=== PATIENT | female | born 1940 | race Caucasian/White ===

== ENCOUNTER 2017-03-24 07:41 | Inpatient (IN) | payer OTHER ==
[2017-03-24 07:59] VITALS: BMI 22.6
[2017-03-24] MEDS ORDERED: ACETAMINOPHEN 1000 MG/100 ML VIAL (NON FORMULARY) IVPB ONE (08:30)
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
[2017-03-24] MEDS ORDERED: ACETAMINOPHEN INJECTION 100 ML IVPB ONE (08:53)
--- NOTE | 2017-03-24 09:07 | PDOC ---
Attending Attestation - Resident Resident Name: Nury Jurado - ED Attending Attestation I have performed the following: I have examined & evaluated the patient, The case was reviewed & discussed with the resident, I agree w/resident's findings & plan, Exceptions are as noted - Physicial Exam PE: 03/24/17 12:51 pt awake, alert, obesse, in moderate distress nc, atr perrla, eomi cta rrr sft, nt, nd + distal thorasic/proximal lumbar middline ttp unable to obtain straight leg raise b/l - Medical Decision Making 03/24/17 12:57 pt is a 76 y/o female with acute compression fx of t12, L3 with intractable pain , limited mobiltty. will treat with parenteral pain meds, will admit. <Phoenix Ramirez - Last Filed: 03/24/17 12:51> - HPI HPI: 03/24/17 10:20 The patient is a 76 year old female, with a significant past medical history of chronic back pain, hypertension, diabetes mellitus, and depression, who presents to the emergency department with, approx. 6 days of diffuse midline back pain s/p fall. The patient reports the back pain radiates down to her legs bilaterally (right more than left) and reports mild tingling. The patient reports she was recently seen at [facility] s/p fall and head CT and x- rays of the spine were negative. Allergies: NKA Documentation prepared by Benji Quiroz, acting as medical doctor for Phoenix Ramirez MD. <Benji Quiroz - Last Filed: 03/24/17 14:30>
[2017-03-24 10:04] LABS: URINE APPEARANCE CLEAR; URINE BILIRUBIN NEGATIVE (NEGATIVE); URINE BLOOD NEGATIVE (NEGATIVE); URINE COLOR LTYELLOW; URINE GLUCOSE (UA) 3+ (NEGATIVE); URINE KETONE TRACE (NEGATIVE); URINE LEUK ESTERASE NEGATIVE (NEGATIVE); URINE NITRITE NEGATIVE (NEGATIVE); URINE PROTEIN 1+ (NEGATIVE); URINE UROBILINOGEN NEGATIVE mg/dL (0.2-1.0)
[2017-03-24] MEDS ORDERED: SODIUM CHLORIDE 0.9% 1000 ML INFUS.BAG IV ONE (10:24)
[2017-03-24 10:32] LABS: BASO % 0.5 % (0-2.0); EOS % 1.1 % (0-4.5); HEMATOCRIT 44.2 % (32.4-45.2); HEMOGLOBIN 14.2 GM/dL (10.7-15.3); LYMPH % 14.1 % (8-40); MCH 28.1 pg (25.7-33.7); MCHC 32.2 g/dl (32.0-36.0); MEAN CELL VOLUME 87.5 fl (80-96); MONO % 8.2 % (3.8-10.2); NEUT % 76.1 % (42.8-82.8); PLATELET COUNT 170 K/MM3 (134-434); RBC 5.05 M/mm3 (3.60-5.2); WHITE BLOOD COUNT 12.4 K/mm3 (4.0-10.0)
[2017-03-24 10:56] LABS: ALBUMIN 3.4 g/dl (3.4-5.0); ANION GAP 7 (8-16); BLOOD UREA NITROGEN 35 mg/dL (7-18); CALCIUM 8.5 mg/dL (8.5-10.1); CHLORIDE 103 mmol/L (98-107); CO2 27 mmol/L (21-32); GLUCOSE,RANDOM 209 mg/dL (74-106); POTASSIUM 4.1 mmol/L (3.5-5.1); SODIUM 137 mmol/L (136-145)
[2017-03-24 10:59] LABS: ALK PHOS 100 U/L (45-117); BILIRUBIN,TOTAL 0.4 mg/dL (0.2-1.0); CREATININE 0.9 mg/dL (0.55-1.02); SGOT/AST 5 U/L (15-37); SGPT/ALT 16 U/L (12-78); TOT PROT 6.7 g/dl (6.4-8.2)
[2017-03-24 11:03] LABS: PROTHROMBIN TIME (PATIENT) 11.3 SEC (9.98-11.88)
[2017-03-24 11:35] LABS: EPI CELLS RARE /HPF (FEW); URINE MUCUS RARE
[2017-03-24 13:30] LABS: ERYTHROCYTE SEDIMENTATION RATE 18 mm/hr (0-30)
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
[2017-03-24] MEDS: INSULIN SLIDING SCALE (NOVOLOG) 1 VIAL SQ SCH ×2 (16:53→22:31)
[2017-03-24] MEDS ORDERED: INSULIN REGULAR HUMAN 100 UNITS/ML *VIAL ONE (17:03)
[2017-03-24] MEDS ORDERED: ENALAPRIL MALEATE 10 MG TABLET (FP) PO ONE ×2 (18:45→21:45)
[2017-03-24] MEDS: HYDROmorphone HCL CARPU-JECT 1 MG/1 ML DISP.SYRIN IVPUSH PRN (20:10)
[2017-03-24] MEDS: LIDOCAINE 5% TOPICAL PATCH TP SCH (20:20)
[2017-03-24] MEDS ORDERED: INSULIN (NOVOLOG) ASPART 100 UNITS/ML 10ML VIAL ONE (21:32)
[2017-03-24] MEDS: ROSUVASTATIN CA 10 MG TABLET (FP) PO SCH (22:29)
[2017-03-24] MEDS: DOCUSATE SODIUM 100 MG CAPSULE (FP) PO SCH (22:29)
[2017-03-24] MEDS: LIDOCAINE PATCH REMOVAL MC SCH (22:30)
[2017-03-24] MEDS: INSULIN DETEMIR 100 UNITS/ML MDV SQ SCH (22:30)
[2017-03-25] MEDS: HYDROmorphone HCL CARPU-JECT 1 MG/1 ML DISP.SYRIN IVPUSH PRN ×4 (02:13→17:47)
[2017-03-25] MEDS: INSULIN SLIDING SCALE (NOVOLOG) 1 VIAL SQ SCH ×4 (06:21→22:26)
[2017-03-25] MEDS: DOCUSATE SODIUM 100 MG CAPSULE (FP) PO SCH ×3 (06:22→22:28)
[2017-03-25 07:53] LABS: HEMATOCRIT 42.9 % (32.4-45.2); HEMOGLOBIN 13.8 GM/dL (10.7-15.3); MCH 28.3 pg (25.7-33.7); MCHC 32.2 g/dl (32.0-36.0); MEAN CELL VOLUME 87.9 fl (80-96); MEAN PLT VOLUME 9.2 fl (7.5-11.1); PLATELET COUNT 168 K/MM3 (134-434); RBC 4.89 M/mm3 (3.60-5.2); RDW 13.1 % (11.6-15.6)
[2017-03-25 08:31] LABS: ANION GAP 7 (8-16); BLOOD UREA NITROGEN 30 mg/dL (7-18); CALCIUM 9.3 mg/dL (8.5-10.1); CHLORIDE 103 mmol/L (98-107); CO2 29 mmol/L (21-32); GLUCOSE,RANDOM 243 mg/dL (74-106); POTASSIUM 4.6 mmol/L (3.5-5.1); SODIUM 139 mmol/L (136-145)
--- NOTE | 2017-03-25 08:51 | EKG ---
Test Reason : Blood Pressure : / mmHG Vent. Rate : 090 BPM Atrial Rate : 090 BPM P-R Int : 138 ms QRS Dur : 086 ms QT Int : 360 ms P-R-T Axes : 074 -71 074 degrees QTc Int : 440 ms SINUS RHYTHM WITH PREMATURE ATRIAL COMPLEXES LEFT ANTERIOR FASCICULAR BLOCK ABNORMAL ECG NO PREVIOUS ECGS AVAILABLE Confirmed by SIMBA AKBAR MD ([id number]) on 03/25/2017 8:51:38 AM Referred By: Confirmed By:SIMBA AKBAR MD
[2017-03-25] MEDS ORDERED: PATIENT'S OWN MEDICATION (NON-FORMULARY) (Sertraline Hcl [Zoloft] 100 MG) PO SCH (10:00)
[2017-03-25] MEDS ORDERED: PT OWN MED DRAWER 7, Y5N ONE (10:06)
[2017-03-25] MEDS: LIDOCAINE 5% TOPICAL PATCH TP SCH (10:12)
[2017-03-25] MEDS: POLYETHYLENE GLYCOL 3350 119 GM BTL PO SCH (10:12)
[2017-03-25] MEDS: SERTRALINE HCL 50 MG TABLET (FP) PO SCH (10:13)
[2017-03-25] MEDS: ENALAPRIL MALEATE 10 MG TABLET (FP) PO SCH (10:13)
[2017-03-25] MEDS ORDERED: HYDROmorphone HCL CARPU-JECT 1 MG/1 ML DISP.SYRIN IVPUSH PRN (11:55)
[2017-03-25] MEDS ORDERED: BISACODYL 10 MG SUPP.RECT RC PRN (11:56)
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
[2017-03-25] MEDS: LIDOCAINE PATCH REMOVAL MC SCH (22:27)
[2017-03-25] MEDS: INSULIN DETEMIR 100 UNITS/ML MDV SQ SCH (22:27)
[2017-03-25] MEDS: ROSUVASTATIN CA 10 MG TABLET (FP) PO SCH (22:28)
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
[2017-03-26] MEDS: INSULIN SLIDING SCALE (NOVOLOG) 1 VIAL SQ SCH ×4 (06:48→21:15)
[2017-03-26] MEDS: DOCUSATE SODIUM 100 MG CAPSULE (FP) PO SCH ×3 (06:49→21:08)
[2017-03-26] MEDS: HYDROmorphone HCL CARPU-JECT 1 MG/1 ML DISP.SYRIN IVPUSH PRN (08:43)
[2017-03-26] MEDS: LIDOCAINE 5% TOPICAL PATCH TP SCH (09:27)
[2017-03-26] MEDS: POLYETHYLENE GLYCOL 3350 119 GM BTL PO SCH (09:27)
[2017-03-26] MEDS: SERTRALINE HCL 50 MG TABLET (FP) PO SCH (09:28)
[2017-03-26] MEDS: ENALAPRIL MALEATE 10 MG TABLET (FP) PO SCH (09:28)
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
[2017-03-26] MEDS ORDERED: HYDROmorphone HCL CARPU-JECT 1 MG/1 ML DISP.SYRIN IVPUSH PRN (13:27)
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
[2017-03-26] MEDS ORDERED: diphenhydrAMINE HCL 25 MG CAPSULE (FP) PO ONE (17:45)
[2017-03-26] MEDS ORDERED: diphenhydrAMINE HCL 25 MG CAPSULE (FP) PO PRN (18:00)
[2017-03-26] MEDS ORDERED: HYDROCORTISONE 1% TOPICAL CREAM 30 GM TUBE TP PRN (18:33)
[2017-03-26] MEDS ORDERED: KETOROLAC TROMETHAMINE 15 MG/ML VIAL IVPUSH PRN (18:41)
[2017-03-26] MEDS: BACITRACIN/POLYMYXIN B SULFATE 15 GM TUBE TP SCH (21:09)
[2017-03-26] MEDS: ROSUVASTATIN CA 10 MG TABLET (FP) PO SCH (21:09)
[2017-03-26] MEDS: LIDOCAINE PATCH REMOVAL MC SCH (21:20)
[2017-03-26] MEDS ORDERED: SODIUM CHLORIDE 1,000 ML IV SCH (23:00)
[2017-03-27] MEDS: DOCUSATE SODIUM 100 MG CAPSULE (FP) PO SCH ×3 (06:21→21:11)
[2017-03-27] MEDS: INSULIN SLIDING SCALE (NOVOLOG) 1 VIAL SQ SCH ×3 (06:22→12:39)
[2017-03-27 07:48] LABS: BASO % 0.5 % (0-2.0); EOS % 1.8 % (0-4.5); LYMPH % 20.7 % (8-40); MCH 28.3 pg (25.7-33.7); MCHC 32.5 g/dl (32.0-36.0); MEAN CELL VOLUME 87.2 fl (80-96); MEAN PLT VOLUME 9.3 fl (7.5-11.1); MONO % 9.3 % (3.8-10.2); NEUT % 67.7 % (42.8-82.8); PLATELET COUNT 168 K/MM3 (134-434); RBC 4.59 M/mm3 (3.60-5.2); RDW 12.8 % (11.6-15.6); WHITE BLOOD COUNT 10.3 K/mm3 (4.0-10.0)
[2017-03-27 08:20] LABS: ALBUMIN 2.8 g/dl (3.4-5.0); ANION GAP 7 (8-16); BLOOD UREA NITROGEN 32 mg/dL (7-18); CALCIUM 8.2 mg/dL (8.5-10.1); CHLORIDE 103 mmol/L (98-107); CO2 25 mmol/L (21-32); CREATININE 0.9 mg/dL (0.55-1.02); GLUCOSE,RANDOM 273 mg/dL (74-106); POTASSIUM 4.7 mmol/L (3.5-5.1); SGOT/AST 5 U/L (15-37); SGPT/ALT 14 U/L (12-78); SODIUM 135 mmol/L (136-145)
[2017-03-27 08:22] LABS: ALK PHOS 104 U/L (45-117); BILIRUBIN,TOTAL 0.7 mg/dL (0.2-1.0); TOT PROT 5.7 g/dl (6.4-8.2)
[2017-03-27] MEDS ORDERED: GENTAMICIN SO4 80 MG/2 ML VIAL ONE (10:12)
[2017-03-27] MEDS ORDERED: VANCOMYCIN 1,000 MG VIAL (RESTRICTED TO ID ONLY) ONE ×2 (10:13→14:15)
[2017-03-27] MEDS ORDERED: THROMBIN (BOVINE) 20,000 UNIT VIAL TP ONE (10:13)
[2017-03-27] MEDS ORDERED: LIDOCAINE 1%/EPI 1:100000 (20 ML MULTI DOSE VIAL) ONE (10:14)
[2017-03-27] MEDS ORDERED: BUPIVACAINE HCL/PF 0.5% (5MG/ML) 10 ML VIAL ONE (10:15)
[2017-03-27] MEDS: ENALAPRIL MALEATE 10 MG TABLET (FP) PO SCH (10:21)
[2017-03-27] MEDS: LIDOCAINE 5% TOPICAL PATCH TP SCH ×2 (10:21→10:25)
[2017-03-27] MEDS: POLYETHYLENE GLYCOL 3350 119 GM BTL PO SCH (10:21)
[2017-03-27] MEDS: SERTRALINE HCL 50 MG TABLET (FP) PO SCH (10:24)
[2017-03-27] MEDS ORDERED: PT OWN MED DRAWER 7, Y5N ONE (10:30)
[2017-03-27] MEDS: BACITRACIN/POLYMYXIN B SULFATE 15 GM TUBE TP SCH ×2 (10:31→21:13)
[2017-03-27] MEDS ORDERED: fentaNYL CITRATE 250 MCG/5 ML VIAL ONE (11:37)
[2017-03-27] MEDS ORDERED: SUCCINYLCHOLINE CHLORIDE 200 MG/10 ML VIAL ONE (11:37)
[2017-03-27] MEDS ORDERED: PROPOFOL 20 ML ONE ×2 (11:37)
[2017-03-27] MEDS ORDERED: MIDAZOLAM HCL 2 MG/2 ML SINGLE DOSE VIAL ONE ×3 (11:37)
[2017-03-27] MEDS ORDERED: KETAMINE HCL 200 MG/20 ML VIAL ONE (11:37)
[2017-03-27] MEDS ORDERED: ROCURONIUM BROMIDE 50 MG/5 ML VIAL ONE ×2 (12:49→13:39)
[2017-03-27] MEDS ORDERED: ceFAZolin SODIUM 1 GM VIAL IVPB ONE (13:15)
[2017-03-27] MEDS ORDERED: VANCOMYCIN 1 GRAM (PRE-DOCKED) 1,000 MG/250 ML BAG IVPB ONE (13:30)
[2017-03-27] MEDS ORDERED: PHENYLEPHRINE HCL 10 MG/1 ML SINGLE DOSE VIAL ONE (13:51)
[2017-03-27] MEDS ORDERED: ceFAZolin SODIUM 1 GM VIAL ONE (14:15)
[2017-03-27] MEDS ORDERED: DEXAMETHASONE SOD PHOSPHATE 4 MG/1 ML VIAL ONE (14:15)
[2017-03-27] MEDS ORDERED: VASOPRESSIN 20 UNITS/ML VIAL IV ONE (14:54)
[2017-03-27] MEDS ORDERED: LIDOCAINE 1%/EPI 1:100000 (20 ML MULTI DOSE VIAL) IJ ONE (15:18)
[2017-03-27] MEDS ORDERED: THROMBIN (BOVINE) 5,000 UNIT VIAL TP ONE (15:19)
[2017-03-27] MEDS ORDERED: BUPIVACAINE HCL/PF 0.5% (5MG/ML) 10 ML VIAL IJ ONE (15:20)
[2017-03-27] MEDS ORDERED: GLYCOPYRROLATE 0.2 MG/1 ML VIAL ONE (15:21)
[2017-03-27] MEDS ORDERED: NEOSTIGMINE METHYLSULFATE 0.5 MG/ML - 10 ML MDV ONE (15:21)
[2017-03-27] MEDS ORDERED: BACITRACIN 15 GM TUBE TOPICAL OINTMENT ONE (15:36)
[2017-03-27] MEDS ORDERED: ONDANSETRON 4 MG/2 ML VIAL IVPUSH PRN ×2 (15:44→16:35)
[2017-03-27] MEDS ORDERED: HYDROmorphone *PCA* 10MG/50ML DISP.SYRIN PCA SCH (15:45)
[2017-03-27] MEDS ORDERED: LACTATED RINGERS SOLUTION 1,000 ML IV SCH (15:45)
[2017-03-27] MEDS ORDERED: HYDROmorphone *PCA* 6MG/30ML DISP.SYRIN PCA ONE (15:58)
[2017-03-27] MEDS ORDERED: ACETAMINOPHEN 325 MG TABLET (FP) PO PRN (16:02)
--- NOTE | 2017-03-27 16:06 | OP ---
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
--- NOTE | 2017-03-27 16:11 | SURG ---
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 For further detail, please refer to operative report. Visit type - Case Type Case Type: ED Admission - Emergency Emergency Visit: Yes ED Registration Date: 03/26/17 Care time: The patient presented to the Emergency Department on the above date and was hospitalized for further evaluation of their emergent condition. - New patient This patient is new to me today: Yes Date on this admission: 03/27/17
[2017-03-27] MEDS: SODIUM CHLORIDE 1,000 ML IV SCH (16:15)
[2017-03-27] MEDS ORDERED: HYDROCORTISONE 1% TOPICAL CREAM 30 GM TUBE TP PRN (16:35)
[2017-03-27] MEDS ORDERED: BISACODYL 10 MG SUPP.RECT RC PRN (16:35)
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
[2017-03-27] MEDS: ROSUVASTATIN CA 10 MG TABLET (FP) PO SCH (21:12)
[2017-03-27] MEDS: HEPARIN NA (PORCINE) 5,000 UNITS/ML 1ML VIAL SQ SCH (21:12)
[2017-03-27] MEDS: CEFAZOLIN 1 GM PUSH 1 GM/10 ML DISP.SYRIN IVPUSH SCH (21:13)
[2017-03-27] MEDS ORDERED: INSULIN SLIDING SCALE (NOVOLOG) 1 VIAL SQ SCH (22:00)
[2017-03-27] MEDS ORDERED: LIDOCAINE PATCH REMOVAL MC SCH ×2 (22:00)
[2017-03-28] MEDS: CEFAZOLIN 1 GM PUSH 1 GM/10 ML DISP.SYRIN IVPUSH SCH ×3 (06:04→22:04)
[2017-03-28] MEDS: DOCUSATE SODIUM 100 MG CAPSULE (FP) PO SCH ×4 (06:05→22:04)
[2017-03-28] MEDS: HEPARIN NA (PORCINE) 5,000 UNITS/ML 1ML VIAL SQ SCH ×3 (06:06→22:05)
[2017-03-28] MEDS: INSULIN SLIDING SCALE (NOVOLOG) 1 VIAL SQ SCH ×5 (06:07→22:10)
[2017-03-28] MEDS: SODIUM CHLORIDE 1,000 ML IV SCH ×2 (06:10→18:09)
[2017-03-28] MEDS: HYDROmorphone *PCA* 10MG/50ML DISP.SYRIN PCA SCH ×2 (07:32→18:04)
[2017-03-28 07:50] LABS: BASO % 0.5 % (0-2.0); EOS % 0.1 % (0-4.5); HEMATOCRIT 32.5 % (32.4-45.2); HEMOGLOBIN 10.5 GM/dL (10.7-15.3); LYMPH % 10.9 % (8-40); MCH 28.2 pg (25.7-33.7); MCHC 32.4 g/dl (32.0-36.0); MEAN CELL VOLUME 87.2 fl (80-96); MEAN PLT VOLUME 9.5 fl (7.5-11.1); MONO % 8.1 % (3.8-10.2); NEUT % 80.4 % (42.8-82.8); PLATELET COUNT 150 K/MM3 (134-434); RBC 3.72 M/mm3 (3.60-5.2); RDW 12.8 % (11.6-15.6)
[2017-03-28 08:15] LABS: ALBUMIN 2.4 g/dl (3.4-5.0); ANION GAP 8 (8-16); BLOOD UREA NITROGEN 38 mg/dL (7-18); CALCIUM 7.4 mg/dL (8.5-10.1); CHLORIDE 105 mmol/L (98-107); CO2 23 mmol/L (21-32); CREATININE 1.1 mg/dL (0.55-1.02); GLUCOSE,RANDOM 251 mg/dL (74-106); POTASSIUM 4.5 mmol/L (3.5-5.1); SGOT/AST 8 U/L (15-37); SGPT/ALT 12 U/L (12-78); SODIUM 136 mmol/L (136-145)
[2017-03-28 08:16] LABS: ALK PHOS 95 U/L (45-117); BILIRUBIN,TOTAL 0.4 mg/dL (0.2-1.0); TOT PROT 4.9 g/dl (6.4-8.2)
--- NOTE | 2017-03-28 08:43 | PN ---
Progress Note, Physician Chief Complaint: s/p L3-4 decompression and fusion under general anesthesia History of Present Illness: post op day one - Current Medication List Current Medications: Active Medications Acetaminophen (Tylenol -) 650 mg PO Q4H PRN PRN Reason: FEVER Bacitracin/Polymyxin B Sulfate (Polysporin Ointment -) 1 applic TP BID [facility] Last Admin: 03/27/17 21:13 Dose: 1 applic Bisacodyl (Dulcolax Suppository -) 10 mg RC DAILY PRN PRN Reason: CONSTIPATION Diphenhydramine HCl (Benadryl -) 25 mg PO Q6H PRN PRN Reason: FOR ITCHING Docusate Sodium (Colace -) 100 mg PO TID [facility] Last Admin: 03/28/17 06:05 Dose: 100 mg Enalapril Maleate (Vasotec -) 10 mg PO DAILY [facility] Heparin Sodium (Porcine) (Heparin -) 5,000 unit SQ TID [facility] Last Admin: 03/28/17 06:06 Dose: 5,000 unit Hydrocortisone (Hytone 1% Cream -) 1 applic TP BID PRN PRN Reason: itchiness Hydromorphone HCl (Dilaudid Manager Express -) 10 mg TURNTABLE MAN TURNTABLE MAN [facility] PRN Reason: Protocol Stop: 03/30/17 17:14 Last Admin: 03/28/17 07:32 Dose: Not Given Cefazolin Sodium (Ancef -) 1 gm in 10 mls @ 120 mls/hr IVPUSH Q8H [facility] Last Admin: 03/28/17 06:04 Dose: 120 mls/hr Sodium Chloride (Normal Saline -) 1,000 mls @ 75 mls/hr IV ASDIR [facility] Last Admin: 03/28/17 06:10 Dose: 75 mls/hr Insulin Aspart (Novolog Vial Sliding Scale -) 1 vial SQ ACHS [facility] PRN Reason: Protocol Last Admin: 03/28/17 06:07 Dose: 8 unit Insulin Detemir (Levemir Vial) 10 units SQ HS [facility] Lidocaine (Lidoderm Patch -) 1 patch TP DAILY [facility] Miscellaneous (Lidoderm Patch Removal) 1 each MC DAILY@2200 [facility] Last Admin: 03/27/17 21:14 Dose: 1 each Ondansetron HCl (Zofran Injection) 4 mg IVPUSH Q6H PRN PRN Reason: NAUSEA AND/OR VOMITING Polyethylene Glycol (Miralax (For Daily Use) -) 17 gm PO DAILY [facility] Rosuvastatin Calcium (Crestor -) 10 mg PO HS [facility] Last Admin: 03/27/17 21:12 Dose: 10 mg Sertraline HCl (Zoloft -) 100 mg PO DAILY [facility] - Objective Vital Signs: Vital Signs Temperature 97.5 F L 03/28/17 07:26 Pulse Rate 75 03/28/17 07:26 Respiratory Rate 20 03/28/17 07:26 Blood Pressure 104/50 03/28/17 07:26 O2 Sat by Pulse Oximetry (%) 98 03/27/17 17:30 Cardiovascular: Yes: WNL Respiratory: Yes: WNL Gastrointestinal: Yes: WNL Labs: CBC, BMP 03/28/17 06:00 03/28/17 06:00 INR, PTT INR 1.00 (0.82-1.09) 03/24/17 10:00 Assessment/Plan patient doing well, tolerating po liquids, no nausea or vomiting overnight. Patient says sole scraper is helping with the pain but doesnt last long. Will convert to po pain medication. dept of anesthesiology will sign off at this time
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
[2017-03-28] MEDS ORDERED: SODIUM CHLORIDE 1,000 ML IV SCH (09:45)
[2017-03-28] MEDS ORDERED: LIDOCAINE 5% TOPICAL PATCH TP SCH (10:00)
[2017-03-28] MEDS ORDERED: PT OWN MED DRAWER 7, Y5N ONE (10:33)
[2017-03-28] MEDS: ENALAPRIL MALEATE 10 MG TABLET (FP) PO SCH (10:44)
[2017-03-28] MEDS: SERTRALINE HCL 50 MG TABLET (FP) PO SCH (10:44)
[2017-03-28] MEDS: BACITRACIN/POLYMYXIN B SULFATE 15 GM TUBE TP SCH ×2 (10:44→22:30)
[2017-03-28] MEDS: POLYETHYLENE GLYCOL 3350 119 GM BTL PO SCH (10:49)
[2017-03-28] MEDS: ONDANSETRON 4 MG/2 ML VIAL IVPUSH PRN (20:22)
[2017-03-28] MEDS ORDERED: INSULIN (NOVOLOG) ASPART 100 UNITS/ML 10ML VIAL ONE (21:27)
[2017-03-28] MEDS: ROSUVASTATIN CA 10 MG TABLET (FP) PO SCH (22:04)
[2017-03-28] MEDS: INSULIN DETEMIR 100 UNITS/ML MDV SQ SCH (22:05)
[2017-03-28] MEDS ORDERED: INSULIN DETEMIR 100 UNITS/ML MDV SQ SCH (22:28)
[2017-03-29] MEDS: SODIUM CHLORIDE 1,000 ML IV SCH ×2 (01:03→18:30)
[2017-03-29] MEDS: CEFAZOLIN 1 GM PUSH 1 GM/10 ML DISP.SYRIN IVPUSH SCH ×3 (06:16→22:25)
[2017-03-29] MEDS: DOCUSATE SODIUM 100 MG CAPSULE (FP) PO SCH ×3 (06:16→22:23)
[2017-03-29] MEDS: HEPARIN NA (PORCINE) 5,000 UNITS/ML 1ML VIAL SQ SCH ×3 (06:17→22:25)
[2017-03-29] MEDS: INSULIN SLIDING SCALE (NOVOLOG) 1 VIAL SQ SCH ×4 (06:17→22:20)
[2017-03-29] MEDS: ONDANSETRON 4 MG/2 ML VIAL IVPUSH PRN (06:18)
[2017-03-29] MEDS ORDERED: ACETAMINOPHEN 1000 MG/100 ML VIAL (NON FORMULARY) IVPB ONE (09:45)
[2017-03-29] MEDS ORDERED: METOCLOPRAMIDE HCL INJECTION 10 MG/2 ML VIAL IVPUSH ONE (09:45)
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
[2017-03-29] MEDS: POLYETHYLENE GLYCOL 3350 119 GM BTL PO SCH (13:06)
[2017-03-29] MEDS: ENALAPRIL MALEATE 10 MG TABLET (FP) PO SCH (13:06)
[2017-03-29] MEDS: SERTRALINE HCL 50 MG TABLET (FP) PO SCH (13:06)
[2017-03-29] MEDS: BACITRACIN/POLYMYXIN B SULFATE 15 GM TUBE TP SCH ×2 (15:09→22:30)
[2017-03-29] MEDS: HYDROmorphone *PCA* 10MG/50ML DISP.SYRIN PCA SCH (18:30)
[2017-03-29] MEDS: ROSUVASTATIN CA 10 MG TABLET (FP) PO SCH (22:22)
[2017-03-29] MEDS: INSULIN DETEMIR 100 UNITS/ML MDV SQ SCH (22:22)
[2017-03-30] MEDS: INSULIN SLIDING SCALE (NOVOLOG) 1 VIAL SQ SCH ×4 (06:35→23:00)
[2017-03-30] MEDS: HEPARIN NA (PORCINE) 5,000 UNITS/ML 1ML VIAL SQ SCH ×3 (06:36→22:58)
[2017-03-30] MEDS: DOCUSATE SODIUM 100 MG CAPSULE (FP) PO SCH ×3 (06:36→23:01)
[2017-03-30] MEDS: CEFAZOLIN 1 GM PUSH 1 GM/10 ML DISP.SYRIN IVPUSH SCH (06:37)
[2017-03-30 07:37] LABS: BASO % 0.4 % (0-2.0); EOS % 0.6 % (0-4.5); HEMATOCRIT 28.8 % (32.4-45.2); HEMOGLOBIN 9.4 GM/dL (10.7-15.3); LYMPH % 13.8 % (8-40); MCH 28.6 pg (25.7-33.7); MCHC 32.8 g/dl (32.0-36.0); MEAN CELL VOLUME 87.1 fl (80-96); MEAN PLT VOLUME 9.6 fl (7.5-11.1); MONO % 9.8 % (3.8-10.2); NEUT % 75.4 % (42.8-82.8); PLATELET COUNT 158 K/MM3 (134-434); RBC 3.31 M/mm3 (3.60-5.2); RDW 12.7 % (11.6-15.6); WHITE BLOOD COUNT 11.4 K/mm3 (4.0-10.0)
[2017-03-30 08:06] LABS: BLOOD UREA NITROGEN 16 mg/dL (7-18); CHLORIDE 106 mmol/L (98-107); POTASSIUM 4.1 mmol/L (3.5-5.1); SODIUM 139 mmol/L (136-145)
[2017-03-30 08:12] LABS: ANION GAP 8 (8-16); CALCIUM 7.6 mg/dL (8.5-10.1); CO2 25 mmol/L (21-32); CREATININE 0.6 mg/dL (0.55-1.02); GLUCOSE,RANDOM 121 mg/dL (74-106)
[2017-03-30] MEDS: ONDANSETRON 4 MG/2 ML VIAL IVPUSH PRN (10:04)
[2017-03-30] MEDS: BACITRACIN/POLYMYXIN B SULFATE 15 GM TUBE TP SCH ×2 (10:04→23:00)
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
[2017-03-30] MEDS: SERTRALINE HCL 50 MG TABLET (FP) PO SCH (14:11)
[2017-03-30] MEDS: ENALAPRIL MALEATE 10 MG TABLET (FP) PO SCH (14:11)
[2017-03-30] MEDS: POLYETHYLENE GLYCOL 3350 119 GM BTL PO SCH (14:11)
[2017-03-30] MEDS: SODIUM CHLORIDE 1,000 ML IV SCH (14:12)
[2017-03-30] MEDS: INSULIN DETEMIR 100 UNITS/ML MDV SQ SCH ×2 (14:13→22:59)
--- NOTE | 2017-03-30 15:36 | PROC ---
Procedure Note Procedure: Asked by Dr. Etienne to remove the patients RIGO drain. RIGO-35ml serosangreous Midline dressing c/d/i. Rigo remove intact and dry gauze/tegaderm applied.
[2017-03-30] MEDS: diphenhydrAMINE HCL 25 MG CAPSULE (FP) PO PRN (19:17)
[2017-03-30] MEDS: ROSUVASTATIN CA 10 MG TABLET (FP) PO SCH (23:01)
[2017-03-31] MEDS: SODIUM CHLORIDE 1,000 ML IV SCH ×3 (00:13→17:45)
[2017-03-31] MEDS: INSULIN SLIDING SCALE (NOVOLOG) 1 VIAL SQ SCH ×4 (06:08→21:35)
[2017-03-31] MEDS: DOCUSATE SODIUM 100 MG CAPSULE (FP) PO SCH ×2 (06:08→14:35)
[2017-03-31] MEDS: ONDANSETRON 4 MG/2 ML VIAL IVPUSH PRN (06:11)
[2017-03-31] MEDS: HEPARIN NA (PORCINE) 5,000 UNITS/ML 1ML VIAL SQ SCH ×3 (06:11→21:26)
[2017-03-31] MEDS ORDERED: INSULIN (NOVOLOG) ASPART 100 UNITS/ML 10ML VIAL ONE (06:26)
[2017-03-31] MEDS ORDERED: INSULIN DETEMIR 100 UNITS/ML MDV SQ ONE (06:26)
[2017-03-31] MEDS: POLYETHYLENE GLYCOL 3350 119 GM BTL PO SCH (10:03)
[2017-03-31] MEDS: BACITRACIN/POLYMYXIN B SULFATE 15 GM TUBE TP SCH ×2 (10:03→21:27)
[2017-03-31] MEDS: ENALAPRIL MALEATE 10 MG TABLET (FP) PO SCH (10:04)
[2017-03-31] MEDS: SERTRALINE HCL 50 MG TABLET (FP) PO SCH (10:04)
--- NOTE | 2017-03-31 10:07 | PN ---
Progress Note (short form) - Note Progress Note: Patient is a 76 year old female who is post-op day #3 s/p L3-L4 Laminectomies with decompression and partial discectomy. She is out of bed and ambulating with physical therapy. Doing well without any noted distress. No fever; chills ; colds or cough. No drains. Surgical dressing dry and intact. Will continue to follow from neurosurgeon.
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
--- NOTE | 2017-03-31 15:48 | PROC ---
Procedure Note Procedure: Left dressing intact since it was clean/dry and well secured. Changed outer dressing and applied betadine, 4x4 gauze and tegaderm to site were RIGO was removed. The dressing was left intact since it was clean and the pt has been having diarrhea. Aquacel dressing left at the bedside if her dressing becomes soiled. May be changed by the nursing staff as needed.
[2017-03-31] MEDS ORDERED: oxyCODONE HCL 5 MG TABLET PO PRN ×2 (15:51→15:53)
[2017-03-31] MEDS ORDERED: DOCUSATE SODIUM 100 MG CAPSULE (FP) PO PRN (15:52)
[2017-03-31] MEDS: diphenhydrAMINE HCL 25 MG CAPSULE (FP) PO PRN (20:54)
[2017-03-31] MEDS: ROSUVASTATIN CA 10 MG TABLET (FP) PO SCH (21:26)
[2017-03-31] MEDS: INSULIN DETEMIR 100 UNITS/ML MDV SQ SCH (21:29)
[2017-04-01] MEDS: HEPARIN NA (PORCINE) 5,000 UNITS/ML 1ML VIAL SQ SCH ×3 (06:19→21:54)
[2017-04-01] MEDS: INSULIN SLIDING SCALE (NOVOLOG) 1 VIAL SQ SCH ×4 (06:22→21:49)
[2017-04-01] MEDS: ONDANSETRON 4 MG/2 ML VIAL IVPUSH PRN (12:08)
[2017-04-01] MEDS: SODIUM CHLORIDE 1,000 ML IV SCH (12:08)
[2017-04-01] MEDS: POLYETHYLENE GLYCOL 3350 119 GM BTL PO SCH (12:08)
[2017-04-01] MEDS: BACITRACIN/POLYMYXIN B SULFATE 15 GM TUBE TP SCH ×2 (12:08→22:00)
[2017-04-01] MEDS: SERTRALINE HCL 50 MG TABLET (FP) PO SCH (15:26)
[2017-04-01] MEDS: ENALAPRIL MALEATE 10 MG TABLET (FP) PO SCH (15:26)
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
[2017-04-01] MEDS: diphenhydrAMINE HCL 25 MG CAPSULE (FP) PO PRN (19:07)
[2017-04-01] MEDS: INSULIN DETEMIR 100 UNITS/ML MDV SQ SCH (21:48)
[2017-04-01] MEDS: ROSUVASTATIN CA 10 MG TABLET (FP) PO SCH (21:53)
[2017-04-01] MEDS ORDERED: PT OWN MED DRAWER 7, Y5N ONE (22:27)
[2017-04-02] MEDS: HEPARIN NA (PORCINE) 5,000 UNITS/ML 1ML VIAL SQ SCH ×3 (05:43→21:51)
[2017-04-02] MEDS: INSULIN SLIDING SCALE (NOVOLOG) 1 VIAL SQ SCH ×4 (06:18→22:18)
[2017-04-02 08:07] LABS: BASO % 1.1 % (0-2.0); EOS % 1.8 % (0-4.5); HEMATOCRIT 27.9 % (32.4-45.2); HEMOGLOBIN 9.3 GM/dL (10.7-15.3); LYMPH % 17.5 % (8-40); MCH 28.9 pg (25.7-33.7); MCHC 33.4 g/dl (32.0-36.0); MEAN CELL VOLUME 86.4 fl (80-96); MEAN PLT VOLUME 9.2 fl (7.5-11.1); MONO % 9.3 % (3.8-10.2); NEUT % 70.3 % (42.8-82.8); PLATELET COUNT 206 K/MM3 (134-434); RBC 3.23 M/mm3 (3.60-5.2); RDW 12.9 % (11.6-15.6); WHITE BLOOD COUNT 9.6 K/mm3 (4.0-10.0)
[2017-04-02 08:18] LABS: ALBUMIN 2.2 g/dl (3.4-5.0); ALK PHOS 120 U/L (45-117); ANION GAP 7 (8-16); BILIRUBIN,TOTAL 0.3 mg/dL (0.2-1.0); BLOOD UREA NITROGEN 14 mg/dL (7-18); CALCIUM 7.4 mg/dL (8.5-10.1); CHLORIDE 107 mmol/L (98-107); CO2 28 mmol/L (21-32); CREATININE 0.7 mg/dL (0.55-1.02); GLUCOSE,RANDOM 112 mg/dL (74-106); MAGNESIUM 1.5 mg/dL (1.8-2.4); POTASSIUM 3.7 mmol/L (3.5-5.1); SGOT/AST 14 U/L (15-37); SGPT/ALT 11 U/L (12-78); SODIUM 142 mmol/L (136-145); TOT PROT 4.9 g/dl (6.4-8.2)
[2017-04-02] MEDS ORDERED: PT OWN MED DRAWER 7, Y5N ONE (10:01)
[2017-04-02] MEDS: BACITRACIN/POLYMYXIN B SULFATE 15 GM TUBE TP SCH ×2 (10:12→21:53)
[2017-04-02] MEDS: SERTRALINE HCL 50 MG TABLET (FP) PO SCH (10:12)
[2017-04-02] MEDS: ENALAPRIL MALEATE 10 MG TABLET (FP) PO SCH (10:12)
[2017-04-02] MEDS: POLYETHYLENE GLYCOL 3350 119 GM BTL PO SCH (10:12)
[2017-04-02] MEDS: ONDANSETRON 4 MG/2 ML VIAL IVPUSH PRN (10:12)
[2017-04-02] MEDS: SODIUM CHLORIDE 1,000 ML IV SCH (11:30)
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
[2017-04-02] MEDS: diphenhydrAMINE HCL 25 MG CAPSULE (FP) PO PRN (19:38)
[2017-04-02] MEDS: ROSUVASTATIN CA 10 MG TABLET (FP) PO SCH (21:51)
[2017-04-02] MEDS ORDERED: INSULIN (NOVOLOG) ASPART 100 UNITS/ML 10ML VIAL ONE (22:16)
[2017-04-02] MEDS: INSULIN DETEMIR 100 UNITS/ML MDV SQ SCH (22:18)
[2017-04-02] MEDS ORDERED: MAGNESIUM SULF 50% (8.12 MEQ/2 ML-1 GM VIAL) IVPB ONE (23:00)
[2017-04-02] MEDS ORDERED: MAGNESIUM SULFATE IN WATER 2 GM/50 ML IVPB IVPB ONE (23:30)
[2017-04-03] MEDS: INSULIN SLIDING SCALE (NOVOLOG) 1 VIAL SQ SCH ×2 (06:12→12:18)
[2017-04-03] MEDS: HEPARIN NA (PORCINE) 5,000 UNITS/ML 1ML VIAL SQ SCH (06:12)
[2017-04-03] MEDS: SODIUM CHLORIDE 1,000 ML IV SCH ×2 (06:17→12:21)
[2017-04-03] MEDS ORDERED: PT OWN MED DRAWER 7, Y5N ONE ×3 (06:23→10:01)
[2017-04-03] MEDS ORDERED: INSULIN (NOVOLOG) ASPART 100 UNITS/ML 10ML VIAL ONE (07:08)
[2017-04-03] MEDS: BACITRACIN/POLYMYXIN B SULFATE 15 GM TUBE TP SCH (10:06)
[2017-04-03] MEDS: POLYETHYLENE GLYCOL 3350 119 GM BTL PO SCH (10:06)
[2017-04-03] MEDS: ENALAPRIL MALEATE 10 MG TABLET (FP) PO SCH (10:08)
[2017-04-03] MEDS: SERTRALINE HCL 50 MG TABLET (FP) PO SCH (10:08)
--- NOTE | 2017-04-03 11:34 | PN ---
Progress Note (short form) - Note Progress Note: PT seen and examined this am. Having bowel movements that are now formed. No pain. Vital Signs Period Temp Pulse Resp BP Sys/Abdullahi Pulse Ox Last 24 Hr 97.8 F-98.6 F 70-88 16-20 114-145/47-98 95 GEN: A&0x3, NAD ABD: soft, non-distended, non-tender Back: dressing changed. Incision c/d/i with chris. No erythema, drainage or fullness. LE: 5/5 dorsi/platnar flexion b/l. No calf tenderness or swelling noted b/l. able to straight leg raise 5/5 b/l. CBC, BMP 18/18 06:45 04/02/18 06:45 A/P: 76 yo female s/p L3-L4 laminectomy, decompression with partial discectomy and fusion, POD#7 D/w Dr. Etienne and pt is cleared for discharge, she will be going to [facility] discharge instructions written regarding her f/u care, incision care and activity levels
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
[2017-04-03 16:05] VITALS: BP 150/75; PULSE 86; TEMP 98.6
== END 2017-04-03 14:21 | DRG 304 ==
LOC: JER 07:41 → JERBED 13:57 → J8W 17:43 → OBSVTOIN 03-26 14:19
PROVIDERS: ADMIT Internal Medicine; ATTEND Nurse Practitioner Acute Care
PROC: 01N80ZZ Release Thoracic Nerve, Open Approach (ICD-10-PCS; principal; 2017-03-26)
PROC: 0RB90ZZ Excision of Thoracic Vertebral Disc, Open Approach (ICD-10-PCS; 2017-03-26)
PROC: 0RG6071 Fusion of Thoracic Vertebral Joint with Autologous Tissue Substitute, Posterior Approach, Posterior Column, Open Approach (ICD-10-PCS; 2017-03-26)
PROC: 0JX70ZB Transfer Back Subcutaneous Tissue and Fascia with Skin and Subcutaneous Tissue, Open Approach (ICD-10-PCS; 2017-03-26)
DX: S22.039A Unspecified fracture of third thoracic vertebra, initial encounter for closed fracture (principal); S32.049A Unspecified fracture of fourth lumbar vertebra, initial encounter for closed fracture; W19.XXXA Unspecified fall, initial encounter; I10 Essential (primary) hypertension; E11.9 Type 2 diabetes mellitus without complications; R11.2 Nausea with vomiting, unspecified; S22.049A Unspecified fracture of fourth thoracic vertebra, initial encounter for closed fracture; M47.894 Other spondylosis, thoracic region
CPT/HCPCS: 36415; 71045-TC-FY; 72128-TC; 72131-TC; 72146-TC; 72148-TC; 76000-TC-FY; 80048; 80053; 81003; 81015; 82962; 83735; 85025; 85027; 85610; 85651; 86140; 86850; 86900; 86901; 87086; 93005; 93010; 94760; 97116-GP; 97161-GP; 99283-25; G0378; J1170; J1644

== ENCOUNTER 2017-05-16 10:56 | Emergency (ER) | payer OTHER ==
[2017-05-16 11:26] VITALS: BP 151/86; PULSE 110; TEMP 97.7; BMI 22.7
--- NOTE | 2017-05-16 11:28 | PDOC ---
History of Present Illness - General Chief Complaint: Weakness Stated Complaint: WEAKNESS Time Seen by Provider: 05/16/17 11:07 Past History - Past Medical History Allergies/Adverse Reactions: Allergies Allergy/AdvReac Type Severity Reaction Status Date / Time latex Allergy Verified 05/16/17 11:21 Latex, Natural Rubber Allergy Verified 05/16/17 11:21 Home Medications: Ambulatory Orders Enalapril Maleate [Vasotec -] 10 mg PO DAILY 03/24/17 Rosuvastatin Calcium [Crestor] 10 mg PO DAILY 03/24/17 Sertraline HCl [Zoloft] 100 mg PO DAILY 03/24/17 Insulin (Levemir) [Levemir Vial] 15 units SQ HS ml 04/03/17 COPD: No Diabetes: Yes HTN: Yes Psychiatric Problems: Yes (depression) - Suicide/Smoking/Psychosocial Hx Smoking History: Never smoked Have you smoked in the past 12 months: No Information on smoking cessation initiated: No Hx Alcohol Use: No Drug/Substance Use Hx: No Substance Use Type: None Review of Systems - Review of Systems Able to Perform ROS?: Yes Comments:: 05/16/17 12:01 CONSTITUTIONAL: Absent: fever, chills, diaphoresis, generalized weakness, malaise, loss of appetite HEENT: Absent: rhinorrhea, nasal congestion, throat pain, throat swelling, difficulty swallowing, mouth swelling, ear pain, eye pain, visual Changes CARDIOVASCULAR: Absent: chest pain, loss of consciousness, palpitations, irregular heart rate, peripheral edema RESPIRATORY: Absent: cough, shortness of breath, dyspnea with exertion, orthopnea, wheezing, stridor, hemoptysis GASTROINTESTINAL: Present: nausea Absent: abdominal pain, abdominal distension, vomiting, diarrhea , constipation, melena, hematochezia GENITOURINARY: Absent: dysuria, frequency, urgency, hesitancy, hematuria, flank pain, genital pain MUSCULOSKELETAL: Absent: myalgia, arthralgia, joint swelling SKIN: Absent: rash, itching, pallor HEMATOLOGIC/IMMUNOLOGIC: Absent: easy bleeding, easy bruising, lymphadenopathy, frequent infections ENDOCRINE: Absent: unexplained weight gain, unexplained weight loss, heat intolerance, cold intolerance NEUROLOGIC: Present: dizziness/weakness Absent: headache, focal weakness or paresthesias, dizziness, unsteady gait, seizure, mental status changes, bladder or bowel incontinence PSYCHIATRIC: Absent: anxiety, depression, suicidal or homicidal ideation, hallucinations. Is the patient limited Omani proficient: No *Physical Exam - Vital Signs Last Vital Signs Temp Pulse Resp BP Pulse Ox 97.7 F 110 H 16 151/86 96 05/16/17 11:00 05/16/17 11:00 05/16/17 11:00 05/16/17 11:00 05/16/17 11:00 - Physical Exam Comments: 05/16/17 12:02 GENERAL: Well developed, well nourished. Awake and alert. No acute distress. Laying comfortably in exam bed. HEENT: Normocephalic, atraumatic. PERRLA, EOMI. No conjunctival pallor. Sclera are non- icteric. Moist mucous membranes. Oropharynx is clear. NECK: Supple. Full ROM. No JVD. Carotid pulses 2+ and symmetric, without bruits. No thyromegaly. No lymphadenopathy. CARDIOVASCULAR: Regular rate and rhythm. No murmurs, rubs, or gallops. Distal pulses are 2+ and symmetric. PULMONARY: No evidence of respiratory distress. Lungs clear to auscultation bilaterally. No wheezing, rales or rhonchi. ABDOMINAL: Soft. Non-tender. Non-distended. No rebound or guarding. No organomegaly. Normoactive bowel sounds. MUSCULOSKELETAL Normal range of motion at all joints. No bony deformities or tenderness. No CVA tenderness. EXTREMITIES: No cyanosis. No clubbing. No edema. No calf tenderness. SKIN: Warm and dry. Normal capillary refill. No rashes. No jaundice. NEUROLOGICAL: Pt. with tremor of the hads b/l, no flapping noted. Alert, awake, appropriate. Cranial nerves 2-12 intact. No deficits to light touch and temperature in face, upper extremities and lower extremities. No motor deficits in the in face, upper extremities and lower extremities. Normoreflexic in the upper and lower extremities. Normal speech. Toes are down-going bilaterally. Gait is normal without ataxia. PSYCHIATRIC: Cooperative. Good eye contact. Appropriate mood and affect. ED Treatment Course - LABORATORY CBC & Chemistry Diagram: 05/16/17 11:34 05/16/17 11:34 *DC/Admit/Observation/Transfer Diagnosis at time of Disposition: Nausea - Discharge Dispostion Disposition: HOME Condition at time of disposition: Stable Admit: No - Referrals Referrals: Shavonne Fonseca MD [Primary Care Provider] - - Patient Instructions Printed Discharge Instructions: DI for Nausea -- Adult Additional Instructions: Your workup today was normal. Your lab work was also normal. Please take the meclizine every 8 hours as needed for nausea. Please follow-up with your primary care doctor this week. Drink plenty of fluids and eat small meals to help with digestion. Return to the emergency department if you have worsening nausea, if you're unable to keep any food or liquids down, fevers, chills or have any changes in her symptoms. - Post Discharge Activity
[2017-05-16] MEDS ORDERED: ONDANSETRON 4 MG/2 ML VIAL IVPUSH ONE (11:29)
[2017-05-16] MEDS ORDERED: SODIUM CHLORIDE 1,000 ML IV STA (11:29)
[2017-05-16] MEDS ORDERED: ONDANSETRON 4 MG/2 ML VIAL ONE (11:36)
[2017-05-16 12:00] LABS: BASO % 0.5 % (0-2.0); EOS % 0.2 % (0-4.5); HEMATOCRIT 40.1 % (32.4-45.2); HEMOGLOBIN 13.4 GM/dL (10.7-15.3); LYMPH % 13.1 % (8-40); MCH 29.4 pg (25.7-33.7); MCHC 33.3 g/dl (32.0-36.0); MEAN CELL VOLUME 88.2 fl (80-96); MEAN PLT VOLUME 8.1 fl (7.5-11.1); MONO % 7.3 % (3.8-10.2); NEUT % 78.9 % (42.8-82.8); PLATELET COUNT 218 K/MM3 (134-434); RBC 4.55 M/mm3 (3.60-5.2); RDW 14.5 % (11.6-15.6); WHITE BLOOD COUNT 9.8 K/mm3 (4.0-10.0)
[2017-05-16 12:16] LABS: PROTHROMBIN TIME (PATIENT) 11.3 SEC (9.98-11.88)
[2017-05-16 12:28] LABS: ALBUMIN 3.2 g/dl (3.4-5.0); ANION GAP 7 (8-16); BILIRUBIN,TOTAL < 0.1 mg/dL (0.2-1.0); BLOOD UREA NITROGEN 25 mg/dL (7-18); CALCIUM 8.8 mg/dL (8.5-10.1); CHLORIDE 102 mmol/L (98-107); CO2 29 mmol/L (21-32); CREATININE 1.1 mg/dL (0.55-1.02); GLUCOSE,RANDOM 183 mg/dL (74-106); LIPASE 199 U/L (73-393); POTASSIUM 4.2 mmol/L (3.5-5.1); SGOT/AST 16 U/L (15-37); SGPT/ALT 22 U/L (12-78); SODIUM 138 mmol/L (136-145); TOT PROT 6.4 g/dl (6.4-8.2)
[2017-05-16 12:31] LABS: ALK PHOS 130 U/L (45-117)
[2017-05-16] MEDS ORDERED: FAMOTIDINE IV 20 MG/12 ML VIAL IVPUSH ONE (13:20)
[2017-05-16] MEDS ORDERED: METOCLOPRAMIDE HCL INJECTION 10 MG/2 ML VIAL IVPB ONE (13:20)
[2017-05-16] MEDS ORDERED: FAMOTIDINE 20 MG/50 ML IVPB 20 MG/50 ML MG IVPB ONE (13:50)
[2017-05-16] MEDS ORDERED: METOCLOPRAMIDE HCL INJECTION 10 MG/2 ML VIAL ONE (13:51)
[2017-05-16] MEDS ORDERED: MINERAL OIL ENEMA 133 ML ENEMA PR ONE (14:25)
--- NOTE | 2017-05-17 13:21 | EKG ---
Test Reason : Blood Pressure : / mmHG Vent. Rate : 107 BPM Atrial Rate : 107 BPM P-R Int : 138 ms QRS Dur : 088 ms QT Int : 344 ms P-R-T Axes : 061 -68 065 degrees QTc Int : 459 ms SINUS TACHYCARDIA POSSIBLE LEFT ATRIAL ENLARGEMENT LEFT ANTERIOR FASCICULAR BLOCK CANNOT RULE OUT INFERIOR INFARCT , AGE UNDETERMINED ABNORMAL ECG WHEN COMPARED WITH ECG OF 24-MAR-2017 15:25, PREMATURE ATRIAL COMPLEXES ARE NO LONGER PRESENT Confirmed by SIMBA AKBAR MD ([id number]) on 05/17/2017 1:21:07 PM Referred By: Confirmed By:SIMBA AKBAR MD
== END 2017-05-16 15:51 | disposition home or self-care (01) ==
LOC: JER 10:56
PROC: 3E033GC Introduction of Other Therapeutic Substance into Peripheral Vein, Percutaneous Approach (ICD-10-PCS; principal; 2017-05-16)
PROC: 3E033GC Introduction of Other Therapeutic Substance into Peripheral Vein, Percutaneous Approach (ICD-10-PCS; 2017-05-16)
PROC: 3E033GC Introduction of Other Therapeutic Substance into Peripheral Vein, Percutaneous Approach (ICD-10-PCS; 2017-05-16)
DX: R11.0 Nausea (principal); I10 Essential (primary) hypertension; E11.9 Type 2 diabetes mellitus without complications; Z79.4 Long term (current) use of insulin; F32.9 Major depressive disorder, single episode, unspecified
CPT/HCPCS: 36415; 70450-TC; 71045-TC-FY; 80053; 82550; 83690; 84484; 85025; 85610; 93005; 93010; 96374; 96375; 99284-25; J7030